=== PATIENT | female | born 1955 | race Two or more races ===

== ENCOUNTER 2020-02-22 14:31 | Inpatient (IN) | payer OTHER ==
[~2020-02-22] VITALS: Ht 154.9 cm; Wt 89.5 kg
[2020-02-22] MEDS ORDERED: ONDANSETRON HCL 4 MG/2 ML VIAL IV ONE (14:45)
[2020-02-22] MEDS ORDERED: MORPHINE SULFATE 4 MG/ML SYR/VIAL IV ONE (14:45)
[2020-02-22] MEDS ORDERED: ASPirin 81 mg TAB PO ONE (14:45)
[2020-02-22 15:25] LABS: Basophils # (auto) 0 10 ^3/uL (0-0.2); Basophils % (auto) 0.7 % (0.0-2.0); Eosinophils # (auto) 0 10 ^3/uL (0-0.8); Eosinophils % (auto) 0.2 % (0.0-7.0); Hematocrit 38.1 % (36.0-46.0); Hemoglobin 12.6 g/dL (12.2-16.2); Lymphocytes # (auto) 1.4 10 ^3/uL (0.4-5.4); Lymphocytes % (auto) 24.9 % (10.0-50.0); Mean Corpuscular Hemoglobin 29.1 pg (28.0-32.0); Mean Corpuscular Volume 88.1 fL (80.0-100.0); Monocytes # (auto) 0.7 10 ^3/uL (0-1.3); Monocytes % (auto) 12.6 % (0.0-12.0); Neutrophils # (auto) 3.5 10 ^3/uL (1.6-8.6); Neutrophils % (auto) 61.6 % (37.0-80.0); Nucleated Red Blood Cells % 0.1 %; Platelet Count (auto) 271 10^3/uL (140-450); Red Blood Cells 4.32 10^6/uL (4.0-5.20); Red Cell Distribution Width 14.7 % (11.8-14.3); White Blood Cell 5.6 10^3/uL (4.4-10.8)
[2020-02-22 15:43] LABS: Albumin 3.9 g/dL (3.4-5.0); Anion Gap 4 (5-15); Blood Urea Nitrogen 10 mg/dL (7-18); Calcium 8.4 mg/dL (8.5-10.1); Carbon Dioxide 27 mmol/L (21-32); Chloride 106 mmol/L (98-107); Glucose 91 mg/dL (74-106); Potassium 3.4 mmol/L (3.5-5.1); Sodium 137 mmol/L (136-145)
[2020-02-22 15:52] LABS: Alanine Aminotransferase 26 U/L (13-56); Alkaline Phosphatase 131 U/L (45-117); Aspartate Aminotransferase 25 U/L (15-37); BUN/Creatinine Ratio 20.4; Bilirubin, Total 0.3 mg/dL (0.2-1.0); GFR African American 162 mL/min; GFR Non-African American 134 mL/min
[2020-02-22] MEDS ORDERED: MORPHINE SULF INJ 2 MG/ML SYRINGE 1ML IV PRN (16:00)
[2020-02-22] MEDS ORDERED: FAMOTIDINE 20 MG TAB PO ONE (16:00)
[2020-02-22] MEDS ORDERED: LORazepam 0.5 MG TAB PO PRN (16:00)
[2020-02-22] MEDS ORDERED: MORPHINE SULFATE 4 MG/ML SYR/VIAL IV PRN (16:00)
[2020-02-22] MEDS ORDERED: CALCIUM GLUC 4.65meq/50ml D5AE 50 ML IV ONE (16:00)
[2020-02-22] MEDS ORDERED: ALUM & MAG HYDROX-SIMETH LIQ(MAALOX) 30 ML PO ONE (16:00)
[2020-02-22] MEDS ORDERED: NITROGLYCERIN 0.4 MG SL TAB SL PRN ×2 (16:00)
[2020-02-22] MEDS ORDERED: POTASSIUM CHL 20MEQ/100ML 100 ML IV ONE (16:00)
[2020-02-22] MEDS ORDERED: ONDANSETRON HCL 4 MG/2 ML VIAL IV PRN (16:00)
[2020-02-22] MEDS: SODIUM CHLORIDE 0.9% 1,000 ML IV SCH (16:24)
[2020-02-22] MEDS: CALCIUM W/VIT D (600MG/400IU) TAB PO SCH (19:20)
[2020-02-22] MEDS ORDERED: ATOR20TA50 PO (19:33)
[2020-02-22] MEDS ORDERED: HYDR-4833 PO (19:33)
[2020-02-22 22:00] VITALS: BP 103/66
[2020-02-22] MEDS: ATORVASTATIN 20 MG TAB PO SCH (22:00)
[2020-02-22] MEDS: METOPROLOL TARTRATE 25 MG TAB PO SCH (22:00)
[2020-02-22] MEDS: FAMOTIDINE 20 MG TAB PO SCH (22:19)
[2020-02-23] MEDS: ACETAMINOPHEN 325 MG TAB PO PRN ×3 (03:00→22:06)
--- NOTE | 2020-02-23 03:17 | NUR ---
02/22/2020 Patient fully alert and oriented x4, pt denies chest pain at this time. Pt educated on signs and symptoms to report, pt educated on use of call light and orientated to room.
[2020-02-23 05:00] VITALS: BP 113/65
[2020-02-23] MEDS: SODIUM CHLORIDE 0.9% 1,000 ML IV SCH (05:13)
[2020-02-23 06:20] LABS: Basophils # (auto) 0.1 10 ^3/uL (0-0.2); Eosinophils # (auto) 0 10 ^3/uL (0-0.8); Hematocrit 36.2 % (36.0-46.0); Hemoglobin 12.2 g/dL (12.2-16.2); Lymphocytes # (auto) 1.2 10 ^3/uL (0.4-5.4); Lymphocytes % (auto) 20.8 % (10.0-50.0); Mean Corpuscular Hemoglobin 29.8 pg (28.0-32.0); Mean Corpuscular Hgb Conc. 33.7 g/dL (32.0-36.0); Mean Corpuscular Volume 88.5 fL (80.0-100.0); Monocytes # (auto) 0.6 10 ^3/uL (0-1.3); Monocytes % (auto) 10.9 % (0.0-12.0); Neutrophils # (auto) 3.9 10 ^3/uL (1.6-8.6); Neutrophils % (auto) 67.3 % (37.0-80.0); Nucleated Red Blood Cells % 0.1 %; Platelet Count (auto) 237 10^3/uL (140-450); Red Blood Cells 4.09 10^6/uL (4.0-5.20); Red Cell Distribution Width 14.4 % (11.8-14.3); White Blood Cell 5.8 10^3/uL (4.4-10.8)
[2020-02-23 06:39] LABS: Potassium 3.3 mmol/L (3.5-5.1)
--- NOTE | 2020-02-23 06:41 | NUR ---
Called Dr. Villeda, made aware patient had temperature 101.2 F, new orders received for abx and cultures.
[2020-02-23 06:58] LABS: Albumin 3.5 g/dL (3.4-5.0); BUN/Creatinine Ratio 16.4; Bilirubin, Total 0.4 mg/dL (0.2-1.0); Calcium 8.2 mg/dL (8.5-10.1); Magnesium 2.3 mg/dL (1.6-2.6); Phosphorus 4.3 mg/dL (2.5-4.90); Total Protein 7.5 g/dL (6.4-8.2)
--- NOTE | 2020-02-23 07:40 | NUR ---
Report given to JOSE Trejo. Aware urine culture needs to be sent out.
[2020-02-23] MEDS ORDERED: POTASSIUM CHL 20 Meq TABLET PO ONE (07:45)
[2020-02-23 08:00] VITALS: BP 102/55
[2020-02-23] MEDS ORDERED: cefTRIAXone 1GM/50ML D5W 50 ML IV SCH (08:00)
[2020-02-23 08:37] VITALS: BP 102/55
[2020-02-23] MEDS: ENOXAPARIN SOD 60 MG/0.6 ML SYRINGE SC SCH (08:55)
[2020-02-23] MEDS: ASPirin 81 mg TAB PO SCH (08:57)
[2020-02-23] MEDS: FAMOTIDINE 20 MG TAB PO SCH ×2 (08:57→21:16)
[2020-02-23] MEDS: CALCIUM W/VIT D (600MG/400IU) TAB PO SCH ×2 (08:58→17:43)
[2020-02-23] MEDS: DOCUSATE SOD 100 MG CAP PO SCH (08:58)
[2020-02-23] MEDS: CLOPIDOGREL BISULFATE 75 MG TAB PO SCH (08:58)
[2020-02-23] MEDS: METOPROLOL TARTRATE 25 MG TAB PO SCH (08:59)
[2020-02-23] MEDS: LISINOPRIL 10 MG TAB PO SCH (10:00)
--- NOTE | 2020-02-23 10:05 | NUR ---
Dr. Alessandro Tyler at bedside to assess patient and discuss plan of care. Orders received will document and carry out. Addendum: 02/23/20 at 1648 by KIRK DOWNEY RN RN Dr. Charmaine Tyler, not Alessandro Tyler was at bedside to assess patient and discuss plan of care.
[2020-02-23] MEDS ORDERED: ADENOSINE 74 MG in GIVE UN-DILUTED 0 ML IV STA (11:21)
[2020-02-23 12:45] VITALS: BP 139/66
[2020-02-23] MEDS ORDERED: OPTISON 3ml Vial for INJ IV ONE (15:25)
[2020-02-23] MEDS ORDERED: IOHEXOL 350 MG/ML 100ML IJ ONE (17:18)
[2020-02-23 17:28] VITALS: BP 92/47
[2020-02-23] MEDS: SOD CHL 0.9%/ KCL 20MEQ 1,000 ML IV SCH (17:42)
[2020-02-23 18:07] LABS: INR 1.07 (0.9-1.15)
--- NOTE | 2020-02-23 20:25 | NUR ---
PATIENT TRANSFERRED TO ROOM 245A PATIENT IS ALERT AND ORIENTED X4. NO S/SX OF DISTRESS OR SOB. VS WITHIN NORMAL LIMITS PATIENT IN BED, BED LOCKED AT LOWEST POSITION, BED RAILS UP X2 AND HEAD OF BED IS UP >30 DEGREES. DISCUSSED POC WITH PATIENT AND INSTRUCTED PATIENT TO CALL PRN; PATIENT VERBALIZED UNDERSTANDING. CALL LIGHT WITHIN REACH. PERSONAL BELONGINGS WITHIN REACH.
[2020-02-23] MEDS: ATORVASTATIN 20 MG TAB PO SCH (21:16)
--- NOTE | 2020-02-23 22:10 | NUR ---
PATIENT UP TO BATHROOM. STEADY GAIT NOTED INDEPENDENTLY.
[2020-02-24] MEDS: SOD CHL 0.9%/ KCL 20MEQ 1,000 ML IV SCH (03:56)
[2020-02-24 07:02] LABS: INR 1.06 (0.9-1.15); Partial Thromboplastin Time 26.8 sec (23.64-32.05)
[2020-02-24 07:10] LABS: Basophils # (auto) 0 10 ^3/uL (0-0.2); Basophils % (auto) 0.4 % (0.0-2.0); Eosinophils # (auto) 0 10 ^3/uL (0-0.8); Hematocrit 39.2 % (36.0-46.0); Hemoglobin 12.9 g/dL (12.2-16.2); Lymphocytes # (auto) 1.7 10 ^3/uL (0.4-5.4); Lymphocytes % (auto) 25.1 % (10.0-50.0); Mean Corpuscular Hemoglobin 29.6 pg (28.0-32.0); Mean Corpuscular Hgb Conc. 32.8 g/dL (32.0-36.0); Mean Corpuscular Volume 90.2 fL (80.0-100.0); Monocytes # (auto) 0.8 10 ^3/uL (0-1.3); Monocytes % (auto) 10.9 % (0.0-12.0); Neutrophils # (auto) 4.4 10 ^3/uL (1.6-8.6); Neutrophils % (auto) 63.6 % (37.0-80.0); Nucleated Red Blood Cells % 0.1 %; Platelet Count (auto) 191 10^3/uL (140-450); Red Blood Cells 4.35 10^6/uL (4.0-5.20); Red Cell Distribution Width 14.6 % (11.8-14.3); White Blood Cell 6.9 10^3/uL (4.4-10.8)
[2020-02-24 07:15] LABS: Calcium 8.3 mg/dL (8.5-10.1); Potassium 3.8 mmol/L (3.5-5.1)
--- NOTE | 2020-02-24 07:35 | NUR ---
Opening Shift Note Assumed care of patient, awake and alert. No S/S of distress/SOB or pain. Instructed on POC and to call for assist PRN, will continue to monitor for changes Q1hr and PRN.
[2020-02-24 08:00] VITALS: BP 122/69
[2020-02-24] MEDS: CALCIUM W/VIT D (600MG/400IU) TAB PO SCH ×2 (08:00→17:33)
--- NOTE | 2020-02-24 08:02 | NUR ---
PT WILL BE SCHEDULED FOR MANAGEMENT CONSULTING PROCEDURE ON SATURDAY 02/24 PER MANAGEMENT CONSULTING "IF COVID RESULTS DO NOT COME BACK BEFORE OR AT 1030, THAN DR JACOBO SAID HE WILL PERFORM THE PROCEDURE TOMORROW ON SATURDAY."
[2020-02-24] MEDS: ASPirin 81 mg TAB PO SCH (08:45)
[2020-02-24] MEDS: LISINOPRIL 10 MG TAB PO SCH (08:46)
[2020-02-24] MEDS: DOCUSATE SOD 100 MG CAP PO SCH (08:46)
[2020-02-24] MEDS: CLOPIDOGREL BISULFATE 75 MG TAB PO SCH (08:46)
[2020-02-24] MEDS: FAMOTIDINE 20 MG TAB PO SCH ×2 (08:46→22:47)
[2020-02-24] MEDS: ENOXAPARIN SOD 60 MG/0.6 ML SYRINGE SC SCH (08:46)
--- NOTE | 2020-02-24 09:22 | NUR ---
RN TO CALL JACOBO WITH COVID RESULTS SOON THEY COME IN
--- NOTE | 2020-02-24 10:08 | NUR ---
TYPE AND SCREEN DRAWN AND SENT TO LAB
--- NOTE | 2020-02-24 11:19 | NUR ---
ALERTED CHIEF INSPECTOR OF POSITIVE COVID RESULTS
--- NOTE | 2020-02-24 11:19 | NUR ---
ALERTED COMPETITIVE ATHLETE OF POSITIVE COVID RESULTS
--- NOTE | 2020-02-24 11:23 | NUR ---
GARETH JACOBO RE: POSITIVE COVID RESULTS. AWAITING CALL BACK
[2020-02-24 12:00] VITALS: BP 117/73
--- NOTE | 2020-02-24 13:27 | NUR ---
UPDATED DAUGHTER RANDELL VIA PHONE PASSWORD VERIFIED. DAUGHTER UPDATED ON POC
--- NOTE | 2020-02-24 14:40 | NUR ---
GARETH SERRANO RE: PT COVID RESULTS. AWAITING CALL BACK
--- NOTE | 2020-02-24 16:04 | NUR ---
MD DARÍO MELGAR AT BEDSIDE. ALL QUESTIONS AND CONCERNS ADDRESSED AT THIS TIME.
[2020-02-24 17:00] VITALS: BP 124/71
--- NOTE | 2020-02-24 17:58 | NUR ---
TEMP 101.7 COOLING MEASURES INITIATED
[2020-02-24] MEDS: ACETAMINOPHEN 325 MG TAB PO PRN (18:13)
--- NOTE | 2020-02-24 19:21 | NUR ---
TEMP RECHECK 99.6
--- NOTE | 2020-02-24 19:30 | NUR ---
Opening Shift Note Assumed care of patient, awake and alert x4. Patient denies pain or shortness of breath at this time. Provided patient with an incentive spirometer and taught patient the use of the incentive spirometer, how to use it, and how often to use it. Patient verbalized understanding and returned demonstration. Patient able to raise marker to 1,000ml, patient tolerated well. Instructed on plan of care and encouraged patient to call for assistance as needed, patient verbalized understanding. Bed is locked in lowest position, side rails x 2 are up, and call light is within reach.
[2020-02-24 20:00] VITALS: BP 109/63
[2020-02-24] MEDS ORDERED: hydrOXYchloroQUINE SULFATE 200 MG TAB PO SCH (20:30)
[2020-02-24] MEDS ORDERED: CHOLECALCIFEROL (VITD3) 1,000IU=25mCg TAB PO ONE (20:30)
[2020-02-24] MEDS ORDERED: AZITHROMYCIN 250 MG TAB PO ONE (20:30)
[2020-02-24] MEDS ORDERED: ZINC SULFATE 220mg CAP or TAB PO ONE (20:45)
--- NOTE | 2020-02-24 21:00 | NUR ---
Spoke with Pharmacy Re: Hydroxychloroquine Sulfate Spoke with pharmacy regarding scheduled medication hydroxychloroquine sulfate. This RN was notified by pharmacy that they are unable to verify this medication because they need clarification on the dosage. Per pharmacist Christi, the pharmacy's protocol for patient's who are initially started on Hydroxychloroquine Sulfate is to start them at 400mg BID for the first two doses and then on days 2-10 dosage is changed to 200mg BID. Will obtain clarification from Dr. Tyler.
--- NOTE | 2020-02-24 21:26 | NUR ---
Spoke with Brianna RE: Schedule Medication Spoke with Dr. Reed who is covering for Dr. Tyler. Notified Dr. Reed that the pharmacy wanted clarification on the dosage for Hydroxychloroquine Sulfate. This RN explained to Dr. Reed that per pharmacy protocol patient's who are initially put on Hydroxychloroquine Sulfate start at 400mg BID for the first two doses and then on days 2-10 dosage is changed to 200mg BID. Per Dr. Reed it is okay to follow pharmacy protocol for Hydroxychloroquine Sulfate. Will correct order (see EMR) and will carry out order as received.
[2020-02-24] MEDS: ATORVASTATIN 20 MG TAB PO SCH (22:47)
--- NOTE | 2020-02-24 23:05 | NUR ---
EKG Performed EKG performed as ordered by and placed in hardchart.
[2020-02-24] MEDS: METOPROLOL TARTRATE 25 MG TAB PO SCH (23:25)
[2020-02-25] VITALS: BP 108/69
--- NOTE | 2020-02-25 00:33 | NUR ---
Urine Specimen Urine specimen collected and sent to lab.
--- NOTE | 2020-02-25 00:58 | NUR ---
Placed Patient On 1L NC This RN was called and notified that patient's oxygen saturation was sustaining between 88-89%. Upon entering room patient was found laying in bed with even and unlabored saturations. Patient denied shortness of breath and oxygen saturation was noted to be at 89% on room air. Patient was asked to take a few deep breathes and patient's oxygen saturation still remained at 89%. This RN placed patient on 1L NC and oxygen saturation came up to 96%. Patient continues to deny shortness of breath and is laying in bed with even and unlabored respirations. No sign/symptoms of distress noted at this time. Bed is locked in lowest position, side rails x 2 are up, call light is within reach.
--- NOTE | 2020-02-25 01:30 | NUR ---
Emesis Patient vomited 100ml of green bile. Patient denies nausea at this time.
[2020-02-25 04:03] LABS: Urine Bacteria NONE SEEN /hpf (None Seen); Urine Blood 1+ /uL (Negative); Urine Mucus FEW (None Seen); Urine Specific Gravity 1.032 (1.001-1.035); Urine WBC 198 /hpf (0 - 5)
[2020-02-25 05:00] VITALS: BP 119/70
--- NOTE | 2020-02-25 05:03 | NUR ---
Blood Draw Blood draw performed, collected, and sent to lab via bullet.
[2020-02-25 05:25] LABS: Basophils # (auto) 0 10 ^3/uL (0-0.2); Basophils % (auto) 0.2 % (0.0-2.0); Eosinophils # (auto) 0 10 ^3/uL (0-0.8); Hematocrit 39.8 % (36.0-46.0); Hemoglobin 13.3 g/dL (12.2-16.2); Lymphocytes % (auto) 14.4 % (10.0-50.0); Mean Corpuscular Hemoglobin 29.4 pg (28.0-32.0); Mean Corpuscular Hgb Conc. 33.4 g/dL (32.0-36.0); Monocytes # (auto) 0.4 10 ^3/uL (0-1.3); Monocytes % (auto) 6.7 % (0.0-12.0); Neutrophils # (auto) 5.3 10 ^3/uL (1.6-8.6); Neutrophils % (auto) 78.7 % (37.0-80.0); Platelet Count (auto) 210 10^3/uL (140-450); Red Blood Cells 4.52 10^6/uL (4.0-5.20); Red Cell Distribution Width 14.6 % (11.8-14.3); White Blood Cell 6.7 10^3/uL (4.4-10.8)
[2020-02-25 05:41] LABS: Calcium 8.5 mg/dL (8.5-10.1); Potassium 3.3 mmol/L (3.5-5.1)
[2020-02-25 05:43] LABS: BUN/Creatinine Ratio 21.8
--- NOTE | 2020-02-25 08:00 | NUR ---
OPENING SHIFT NOTE: PATIENT RESTING IN BED. RESPIRATIONS EVEN AND UNLABORED. ALERT &ORIENTED X4. DENIES ANY SOB AT THIS TIME. ON 1L VIA NASAL CANNULA. PATIENT INSTRUCTED TO AMBULATE IN ROOM AND ON PROPER USE OF INCENTIVE SPIROMETER. PROPER RETURN DEMONSTRATION PROVIDED. 1500ML. UPDATED ON POC. BED IN LOWEST LOCKED POSITION WITH CALL LIGHT WITHIN REACH. WILL CONTINUE CARE.
[2020-02-25] MEDS: CALCIUM W/VIT D (600MG/400IU) TAB PO SCH ×2 (08:38→18:16)
[2020-02-25 09:00] VITALS: BP 119/69
[2020-02-25] MEDS: FAMOTIDINE 20 MG TAB PO SCH ×2 (09:40→22:23)
[2020-02-25] MEDS: DOCUSATE SOD 100 MG CAP PO SCH (09:40)
[2020-02-25] MEDS: ASPirin 81 mg TAB PO SCH (09:40)
[2020-02-25] MEDS: CLOPIDOGREL BISULFATE 75 MG TAB PO SCH (09:41)
[2020-02-25] MEDS: LISINOPRIL 10 MG TAB PO SCH (09:41)
[2020-02-25] MEDS: METOPROLOL TARTRATE 25 MG TAB PO SCH ×2 (09:42→22:23)
[2020-02-25] MEDS: ENOXAPARIN SOD 60 MG/0.6 ML SYRINGE SC SCH (09:42)
[2020-02-25] MEDS ORDERED: CHOLECALCIFEROL (VITD3) 1,000IU=25mCg TAB PO SCH (10:00)
[2020-02-25] MEDS ORDERED: ZINC SULFATE 220mg CAP or TAB PO SCH (10:00)
[2020-02-25] MEDS ORDERED: AZITHROMYCIN 250 MG TAB PO SCH (10:00)
[2020-02-25] MEDS ORDERED: POTASSIUM CHL 20MEQ/100ML 100 ML IV ONE (12:00)
[2020-02-25 12:30] VITALS: BP 101/61
--- NOTE | 2020-02-25 13:27 | NUR ---
assessment Patient is a 64 year old female who is alert and oriented. Prior to her admission patient lived home with her and was independent. Patient has a fww for home use. Per Khushi patients niece patient had come to ER for fever and headache. Patient was diagnosed positive with Covid 19. Patient may need home 02 on discharge. Khushi also informed me other family members have tested negative. Patient will have a room for isolation on discharge. I will continue to monitor patient for discharge needs. Khushi verbalized understanding and agreed to discharge plan home. Addendum: 02/25/20 at 1333 by Beronica HARMAN Amended: Links added.
--- NOTE | 2020-02-25 14:45 | NUR ---
GARETH MCGEE FOR CLEARANCE PER Diego SERRANO REQUEST.
--- NOTE | 2020-02-25 14:52 | NUR ---
REGARDING OXYGEN: PATIENT AMBULATING AROUND ROOM ON ROOM AIR. OXYGEN SATURATIONS AT 96%.
--- NOTE | 2020-02-25 17:23 | NUR ---
Diego FERREIRA AT BEDSIDE. INFORMED OF PATIENT STATUS. PER Diego FERREIRA PATIENT IS CLEARED FOR DISCHARGE.
--- NOTE | 2020-02-25 17:56 | NUR ---
GARETH SERRANO TO INFORM THAT PER Diego FERREIRA PATIENT IS CLEARED FOR DISCHARGE.
--- NOTE | 2020-02-25 18:54 | NUR ---
per housekeeping/laundry okay to move to room 245a with .
--- NOTE | 2020-02-25 19:30 | NUR ---
Opening Shift Note Assumed care of patient, awake and alert x4. Patient denies pain or shortness of breath at this time. Instructed on plan of care and encouraged patient to call for assistance as needed, patient verbalized understanding. Bed is locked in lowest position, side rails x 2 are up, and call light is within reach.
[2020-02-25 20:00] VITALS: BP 113/59
[2020-02-25] MEDS ORDERED: ZINC220T6 PO (20:52)
[2020-02-25] MEDS ORDERED: ASPI81CH43 PO (20:52)
[2020-02-25] MEDS ORDERED: CALC600T80 PO (20:52)
[2020-02-25] MEDS ORDERED: AZIT250T9 PO (20:52)
[2020-02-25] MEDS ORDERED: CHOL1000 PO (20:52)
[2020-02-25] MEDS ORDERED: ATOR20TA50 PO (20:52)
[2020-02-25] MEDS ORDERED: HYDR200T36 PO (20:52)
[2020-02-25] MEDS ORDERED: LISI10TA6 PO (20:52)
[2020-02-25] MEDS ORDERED: MET25T PO (20:52)
[2020-02-25] MEDS ORDERED: CLOP75TA28 PO (20:52)
--- NOTE | 2020-02-25 21:18 | NUR ---
Called and Spoke With Daughter Meghana Re: Discharge Order Called, spoke with, and notified daughter (Meghana) that orders have been placed for patient to be discharged. Daughter, Meghana has agreed to come and sweet pickle maker the patient. Went over discharge instructions with Meghana and informed her that Dr. Tyler has sent patient's new prescriptions to [facility] electronically. All questions and concerns were addressed and answered. Meghana states she will be here at approximately 10:00pm to sweet pickle maker patient. Will update patient on plan of care.
[2020-02-25 21:28] VITALS: BP 113/59
[2020-02-25] MEDS: ATORVASTATIN 20 MG TAB PO SCH (22:22)
--- NOTE | 2020-02-25 22:22 | NUR ---
Discharge Discharge instructions given as ordered. Encouraged patient to follow up with primary care provider as instructed. Notified patient that Dr. Tyler prescribed new medications which were sent electronically to [facility] pharmacy, patient verbalized understanding and agreed to pickle processor the prescriptions tomorrow. Patient educated to isolate herself for 2 weeks and until she is symptom free for 10 days, patient verbalized understanding. All questions and concerns were addressed, patient verbalized understanding. Medication reconciliation form completed and copy given to patient. IV removed with catheter intact, pressure dressing applied. Telemetry unit returned to ICU. Patient taken to vehicle via wheelchair with all personal belongings with covid-[address] Patient accompanied to car by charge nurse and security. Vital signs upon discharge were the following: TEMP:98.0, BP:126/75, RR: 18, HR: 95, and oxygen saturation 94% on room, no signs/symptoms of distress noted or verbalized upon discharge.
[2020-02-26] MEDS ORDERED: POTASSIUM CHL 20 Meq TABLET PO SCH (10:00)
== END 2020-02-25 22:30 | disposition home or self-care (01) | DRG 177 ==
LOC: ER 14:31 → TELE 14:32 → TELE-WESTW 18:10 → TELE-EAST 02-23 20:24
PROVIDERS: ADMIT Hospitalist; ATTEND Internal Medicine
DX: U07.1 COVID-19 (principal); J12.89 Other viral pneumonia; J96.00 Acute respiratory failure, unspecified whether with hypoxia or hypercapnia; J98.11 Atelectasis; E87.6 Hypokalemia; E83.51 Hypocalcemia; E78.5 Hyperlipidemia, unspecified; E66.9 Obesity, unspecified; I10 Essential (primary) hypertension; F32.9 Major depressive disorder, single episode, unspecified; I49.3 Ventricular premature depolarization; M19.90 Unspecified osteoarthritis, unspecified site; I95.9 Hypotension, unspecified; R79.89 Other specified abnormal findings of blood chemistry; I25.10 Atherosclerotic heart disease of native coronary artery without angina pectoris; Z79.899 Other long term (current) drug therapy; Z68.37 Body mass index [BMI] 37.0-37.9, adult
CPT/HCPCS: 36415; 71045; 71275; 78452; 80048; 80053; 81001; 82728; 83735; 83880; 84100; 84484; 85025; 85379; 85610; 85730; 86141; 86850; 86900; 86901; 87040; 87086; 87804; 93005; 93017; 93306; 93970; G0378; J0153; J0610; J0696; J2405; J3480; Q9956